=== PATIENT | female | born 1970 | race Hispanic/Latino ===

== ENCOUNTER 2021-10-08 11:48 | Emergency (ER) | payer OTHER ==
[~2021-10-08] VITALS: Ht 152.4 cm; Wt 61.7 kg
[2021-10-08] MEDS ORDERED: SODIUM CHLORIDE 0.9% 1000ML 1,000 ML IV STA (12:02)
[2021-10-08] MEDS ORDERED: IOPAMIDOL 370 MG/ML 100 ML INFUS..BTL INJ ONE (12:20)
[2021-10-08] MEDS ORDERED: SODIUM CHLORIDE 0.9% 1000ML 1,000 ML ONE (12:21)
[2021-10-08] MEDS ORDERED: MILK OF MA2400 MG/10 PO (13:59)
== END 2021-10-08 14:07 | disposition home or self-care (01) ==
LOC: FSED 11:53
DX: R10.31 Right lower quadrant pain (principal); K59.00 Constipation, unspecified; N83.202 Unspecified ovarian cyst, left side; N83.201 Unspecified ovarian cyst, right side
CPT/HCPCS: 74177; 80048; 80076; 81003; 81025; 85025; 99284; J7030; Q9967